=== PATIENT | female | born 1995 | race Caucasian/White ===

== ENCOUNTER 2017-04-08 11:51 | Day surgery (SDC) | payer OTHER ==
[~2017-04-08] VITALS: Ht 162.6 cm; Wt 121.7 kg
[~2017-04-08 11:51] MED LIST: BACTRIM,SEPT1 TABLET PO; COLACE100 MG PO; DAILY VITAMIN1 EAC8 PO; METFORMIN HCL750 MG PO; NAPROSYN500 MG PO; NORCO 5/3251 TABLET PO; NUVARING VAGIN1 EACH VG; VITAMIN D1000 UNIT PO; ZOFRAN ODT4 MG PO
[2017-04-08] MEDS ORDERED: BUSPAR5 MG PO (11:56)
[2017-04-08] MEDS ORDERED: PERCOCET 5/31 TABLET PO (11:56)
[2017-04-08] MEDS ORDERED: SERTRALINE HCL50 MG PO (11:57)
[2017-04-08] MEDS ORDERED: CLONAZEPAM0.5 MG PO (11:57)
[2017-04-08 12:44] VITALS: BP 115/66
[2017-04-08 12:51] LABS: HEMATOCRIT 44.3 % (36.0-46.0); MCH 28.1 PG (29.0-34.0); MCHC 32.5 G/DL (30.0-36.0); MCV 86.4 FL (83-99); MEAN PLAT.VOLUME 10.6 uM^3 (9.5-12.4); PLATELET COUNT 226 K/uL (156-360); RBC DIS.WIDTH-SD 38.3 % (39-53); RED BLOOD COUNT 5.13 M/uL (3.80-5.20); WHITE BLOOD COUNT 12.9 K/uL (4.1-10.2)
[2017-04-08 13:05] LABS: CHLORIDE 102 mEq/L (99-109); POTASSIUM 3.9 mEq/L (3.7-5.4); SODIUM 138 mEq/L (136-147)
[2017-04-08 13:06] LABS: GLUCOSE 80 mg/dL (70-99)
[2017-04-08 13:08] LABS: ANION GAP 12 MEQ/L (2-14)
[2017-04-08 13:10] LABS: GFR ESTIMATE (CALCULATED) > 59 mL/min/
[2017-04-08 13:11] LABS: UREA NITROGEN (BUN) 8 mg/dL (9-23)
[2017-04-08 13:18] LABS: QUANTITATIVE HCG < 4.0 MIU/ML
[2017-04-08 17:37] VITALS: BP 118/72
[2017-04-08 19:03] VITALS: BP 100/61
[2017-04-08 23:07] VITALS: BP 95/60
[2017-04-09 03:18] VITALS: BP 109/63
[2017-04-09 07:05] VITALS: BP 110/65
[2017-04-09] MEDS ORDERED: NUCYNTA50 MG PO (10:21)
[2017-04-09 11:16] LABS: POINT-OF-CARE METER ID UU14208750
[2017-04-09 11:20] VITALS: BP 113/66
== END 2017-04-09 16:13 | disposition home or self-care (01) ==
LOC: SDC 11:51 → ENRESERV 15:52 → 2SOUTH 15:53 → 2EAST 15:53 → 2SOUTH 15:53 → ENRESERV 16:22 → 2EAST 17:20
PROVIDERS: Surgery
PROC: 0DTJ4ZZ Resection of Appendix, Percutaneous Endoscopic Approach (ICD-10-PCS; principal; 2017-04-08)
DX: K35.80 Unspecified acute appendicitis (principal); R11.2 Nausea with vomiting, unspecified; A18.01 Tuberculosis of spine; J45.909 Unspecified asthma, uncomplicated; F41.8 Other specified anxiety disorders; Z88.0 Allergy status to penicillin; Z88.2 Allergy status to sulfonamides
CPT/HCPCS: 80048; 82948; 84702; 85027; 88304; G0378; J0131; J0330; J0744; J1100; J1170; J1650; J1885; J2250; J2405; J2710; J3010; J7120; Q0175; S0030